=== PATIENT | male | born 1940 | race Two or more races ===

== ENCOUNTER 2018-08-10 11:04 | Emergency (ER) | payer OTHER ==
[~2018-08-10] VITALS: Ht 167.6 cm; Wt 77.1 kg
== END 2018-08-10 14:05 | disposition home or self-care (01) ==
LOC: ER 11:04
DX: M79.605 Pain in left leg (principal); M79.604 Pain in right leg; M79.602 Pain in left arm; M79.601 Pain in right arm; R53.1 Weakness; T46.6X5A Adverse effect of antihyperlipidemic and antiarteriosclerotic drugs, initial encounter; Y92.89 Other specified places as the place of occurrence of the external cause

== ENCOUNTER → 2018-08-19 | Emergency (ER) | payer OTHER ==
[~2018-08-19] VITALS: Ht 167.6 cm; Wt 77.1 kg
[~2018-08-19] MED LIST: ULTRACET PO
== END | disposition home or self-care (01) ==
LOC: ER 13:51
DX: M79.18 Myalgia, other site (principal); R68.83 Chills (without fever)

== ENCOUNTER 2018-10-29 09:31 | Outpatient (CLI) | payer OTHER | END 2018-10-29 09:36 | disposition home or self-care (01) | LOC: LAB 09:31 | DX: N20.0 Calculus of kidney (principal) ==

== ENCOUNTER 2018-11-07 07:48 | Outpatient (CLI) | payer OTHER | END 2018-11-07 07:49 | disposition home or self-care (01) | LOC: NUCLEAR 07:48 | DX: C83.34 Diffuse large B-cell lymphoma, lymph nodes of axilla and upper limb (principal); R50.9 Fever, unspecified; L04.2 Acute lymphadenitis of upper limb; R63.4 Abnormal weight loss | CPT/HCPCS: 78815; A9552 ==

== ENCOUNTER 2018-11-19 11:12 | Inpatient (IN) | payer OTHER ==
[~2018-11-19] VITALS: Ht 165.1 cm; Wt 68.0 kg
[2018-11-19] MEDS ORDERED: DAFLONEX-XL 11300 MG (18:30)
[2018-11-19] MEDS ORDERED: SKELAGESIC (18:30)
[2018-11-20] MEDS ORDERED: DULOXETINE HCL60 MG PO (10:45)
[2018-11-20] MEDS ORDERED: PREDNISONE5 M1 PO (10:48)
[2018-11-26] MEDS ORDERED: NeurRONTin 100mg cap PO (17:49)
[2018-11-26] MEDS ORDERED: CARAFATE1 GM PO (17:49)
[2018-11-26] MEDS ORDERED: PREDNISONE20 MG PO (17:49)
[2018-11-26] MEDS ORDERED: FOLIC ACID1 MG PO (17:50)
== END 2018-11-26 18:21 | disposition home or self-care (01) | DRG 808 ==
LOC: MEDJ 11:12
PROVIDERS: ADMIT Internal Medicine Hematology & Oncology
PROC: 8E0ZXY6 Isolation (ICD-10-PCS; 2018-11-19)
PROC: 4A033R1 Measurement of Arterial Saturation, Peripheral, Percutaneous Approach (ICD-10-PCS; 2018-11-19)
PROC: B246ZZZ Ultrasonography of Right and Left Heart (ICD-10-PCS; 2018-11-20)
PROC: 07DR3ZX Extraction of Iliac Bone Marrow, Percutaneous Approach, Diagnostic (ICD-10-PCS; principal; 2018-11-21)
DX: D59.1 Other autoimmune hemolytic anemias (principal); A41.9 Sepsis, unspecified organism; M33.29 Polymyositis with other organ involvement; N39.0 Urinary tract infection, site not specified; E27.49 Other adrenocortical insufficiency; D47.2 Monoclonal gammopathy; B96.29 Other Escherichia coli [E. coli] as the cause of diseases classified elsewhere; M35.3 Polymyalgia rheumatica

== ENCOUNTER 2019-10-31 08:34 | Outpatient (CLI) | payer OTHER ==
[~2019-10-31 08:34] MED LIST changes: +CARAFATE1 GM PO; +DAFLONEX-XL 11300 MG; +DULOXETINE HCL60 MG PO; +FOLIC ACID1 MG PO; +NeurRONTin 100mg cap PO; +PREDNISONE20 MG PO; +PREDNISONE5 M1 PO; +SKELAGESIC
== END 2019-10-31 08:45 | disposition home or self-care (01) ==
LOC: NUCLEAR 08:34
PROVIDERS: ATTEND Internal Medicine Cardiovascular Disease
DX: R07.89 Other chest pain (principal); I50.20 Unspecified systolic (congestive) heart failure
CPT/HCPCS: 78452; 93017; A9500

== ENCOUNTER 2020-04-21 10:58 | Outpatient (CLI) | payer OTHER | END 2020-04-21 18:00 | disposition home or self-care (01) | LOC: LAB 10:58 | PROVIDERS: ATTEND Internal Medicine Hematology & Oncology | DX: D59.8 Other acquired hemolytic anemias (principal); D89.1 Cryoglobulinemia; D76.1 Hemophagocytic lymphohistiocytosis ==

== ENCOUNTER 2022-04-04 07:22 | Outpatient (CLI) | payer OTHER | END 2022-04-04 07:28 | disposition home or self-care (01) | LOC: TOM 07:22 | PROVIDERS: ATTEND Psychiatry & Neurology Clinical Neurophysiology | DX: M54.12 Radiculopathy, cervical region (principal); R51.9 Headache, unspecified; M31.6 Other giant cell arteritis; D49.6 Neoplasm of unspecified behavior of brain ==

== ENCOUNTER 2023-01-16 07:28 | Outpatient (CLI) | payer OTHER | END 2023-01-16 07:36 | disposition home or self-care (01) | LOC: TOM 07:28 | PROVIDERS: ATTEND Psychiatry & Neurology Clinical Neurophysiology | DX: G47.419 Narcolepsy without cataplexy (principal); Z91.041 Radiographic dye allergy status ==

== ENCOUNTER 2023-02-02 07:44 | Outpatient (CLI) | payer OTHER | END 2023-02-02 07:55 | disposition home or self-care (01) | LOC: SONOGRAMA 07:44 | PROVIDERS: ATTEND Urology | DX: N40.1 Benign prostatic hyperplasia with lower urinary tract symptoms (principal) ==

== ENCOUNTER → 2023-02-06 07:26 | Outpatient (CLI) | payer OTHER | END | disposition home or self-care (01) | LOC: NUCLEAR 07:00 | PROVIDERS: ATTEND Internal Medicine Cardiovascular Disease | DX: I25.10 Atherosclerotic heart disease of native coronary artery without angina pectoris (principal) | CPT/HCPCS: 78452; 93017; A9500; J0153 ==

== ENCOUNTER 2024-03-19 08:07 | Outpatient (CLI) | payer OTHER | END 2024-03-19 08:14 | disposition home or self-care (01) | LOC: SONOGRAMA 08:07 | PROVIDERS: ATTEND General Practice | DX: R10.9 Unspecified abdominal pain (principal) ==

== ENCOUNTER 2025-03-02 07:14 | Outpatient (CLI) | payer OTHER | END 2025-03-02 07:26 | disposition home or self-care (01) | LOC: MRI 07:14 | PROVIDERS: ATTEND Internal Medicine | DX: R06.02 Shortness of breath (principal); R06.00 Dyspnea, unspecified; M25.512 Pain in left shoulder | CPT/HCPCS: 73221 ==

== ENCOUNTER 2025-03-24 07:39 | Outpatient (CLI) | payer OTHER | END 2025-03-24 07:41 | disposition home or self-care (01) | LOC: SONOGRAMA 07:39 | PROVIDERS: ATTEND Internal Medicine | DX: R16.0 Hepatomegaly, not elsewhere classified (principal) ==